=== PATIENT | male | born 1980 | race African-American/Black ===

== ENCOUNTER 2016-10-02 07:17 | Emergency (ER) | payer BC, OTHER ==
[~2016-10-02] VITALS: Ht 182.9 cm; Wt 149.7 kg
[~2016-10-02 07:17] MED LIST: BP MEDS; CEPH-264 PO; HYDR-2678 PO; METR500T PO; lisinopril; zyrtec
--- NOTE | 2016-10-02 07:19 | PHYS DOC ---
Past Medical History Past Medical History: No Pertinent History, Hypertension Past Surgical History: Other Additional Past Surgical Histo: ankle Alcohol Use: None Drug Use: None Adult General Chief Complaint Chief Complaint: ABSCESS HPI HPI Patient is a 36 year old -[place] male who presents with abscess to his left buttocks. He states he noticed it on Sunday and has been getting more painful since then. He denies any fevers chills nausea or vomiting. He denies any pain with bowel movements. He states he had the same problem several years ago and they drained it. He states his last tetanus shot was within the last 5 years. He denies any allergies medications and is currently not taking any medications. He does have a primary care physician. Review of Systems Review of Systems Constitutional: Denies fever or chills [] Eyes: Denies change in visual acuity, redness, or eye pain [] HENT: Denies nasal congestion or sore throat [] Respiratory: Denies cough or shortness of breath [] Cardiovascular: No additional information not addressed in HPI [] GI: Denies abdominal pain, nausea, vomiting, bloody stools or diarrhea [] : Denies dysuria or hematuria [] Musculoskeletal: Denies back pain or joint pain [] Integument: Denies rash, positive for lesion on left buttocks Neurologic: Denies headache, focal weakness or sensory changes [] Endocrine: Denies polyuria or polydipsia [] Current Medications Current Medications Current Medications Medications (Trade) Dose Ordered Sig/Anabel Start Time Stop Time Status Last Admin Dose Admin Lidocaine/Sodium Bicarbonate (Buffered Lidocaine 1%) 20 ml STK-MED ONCE 10/02/16 07:37 10/02/16 07:38 DC Allergies Allergies Allergies Coded Allergies Type Severity Reaction Last Updated Verified No Known Drug Allergies 01/19/15 No Physical Exam Physical Exam Constitutional: Well developed, well nourished, no acute distress, non-toxic appearance. [] HENT: Normocephalic, atraumatic, bilateral external ears normal, oropharynx moist, no oral exudates, nose normal. [] Eyes: PERRLA, EOMI, conjunctiva normal, no discharge. [] Neck: Normal range of motion, no tenderness, supple, no stridor. [] Cardiovascular:Heart rate regular rhythm, no murmur [] Lungs & Thorax: Bilateral breath sounds clear to auscultation [] Abdomen: Bowel sounds normal, soft, no tenderness, no masses, no pulsatile masses. [] Skin: Warm, dry, no erythema, induration approximately 3 x 5 cm on the left lower buttocks Back: No tenderness, no CVA tenderness. [] Extremities: No tenderness, no cyanosis, no clubbing, ROM intact, no edema. [] Neurologic: Alert and oriented X 3, normal motor function, normal sensory function, no focal deficits noted. [] Psychologic: Affect normal, judgement normal, mood normal. [] Current Patient Data Vital Signs Vital Signs Date Time Temp Pulse Resp B/P (MAP) Pulse Ox O2 Delivery O2 Flow Rate FiO2 10/02/16 07:25 98.7 92 20 95 Room Air 98.7 EKG EKG [] Radiology/Procedures Radiology/Procedures [] Impressions: Gluteal abscess Course & Med Decision Making Course & Med Decision Making Pertinent Labs and Imaging studies reviewed. (See chart for details) Patient doesn't have a fever his vitals stable. He doesn't have any pain with bowel movement and is abscesses at the lower left etiology gluteal region. I&D the abscess was performed and it was packed with iodoform cause. He's being discharged with clindamycin 300 mg every 6 hours for 10 days. He's follow-up with general surgery. I've given him a referral to Dr. Bedoya's group. He is return in 2 days for wound check. It was explained to him that he has to follow up with surgery as this is a large enough abscess that he will likely need surgery follow-up and intervention if needed. He is agreeable Plan B discharged in stable condition with return precautions. Dragon Disclaimer Dragon Disclaimer This electronic medical record was generated, in whole or in part, using a voice recognition dictation system. Incision and Drainage Indication: abscess Procedure: The patient was positioned appropriately. Local anesthesia was 5 mL of 1% lidocaine. An incision was then made over the apex of the lesion and bloody, purulent material was expressed. The drainage cavity was irrigated and packed with sterile gauze. The patients tetanus status updated as needed. The patient tolerated the procedure well. Complications: none. Departure Departure Impression: Primary Impression: Gluteal abscess Disposition: 01 HOME, SELF-CARE Referrals: NO PCP (PCP) KINGSLEY BEDOYA MD Patient Instructions: Abscess, Perineal Additional Instructions: Your abscess was opened and packed. Your abscess is much larger than initially thought. You will need to follow-up with a surgeon within the next week. You will need to return to the ER in 2 days. Return sooner if you develop fevers, worsening pain or discomfort, troubles with bowel movements or other concerns. You can take pain meds as instructed. These are narcotic pain medicine can impair your judgment and make you sleepy. Please don't drive while taking these medicines. You will need to take anabiotic for the next 10 days. Scripts Clindamycin Hcl (CLINDAMYCIN HCL) 300 Mg Capsule 300 MG PO QID for 10 Days, #40 CAP Prov: BASSAM GONZALEZ MD 10/02/16 Hydrocodone/Apap 5-325 (NORCO 5-325 TABLET) 1 Each Tablet 1-2 TAB PO Q6HRS Y for PAIN, #20 TAB Prov: BASSAM GONZALEZ MD 10/02/16 BASSAM GONZALEZ MD Oct 02, 2016 07:19
[2016-10-02 07:25] VITALS: BP 160/97
[2016-10-02] MEDS ORDERED: LIDOCAINE 1% / SOD BICARB 8.4% 20 ML VIAL. IJ ONE ×2 (07:30→07:37)
[2016-10-02] MEDS ORDERED: CLIN300C8 PO (08:50)
[2016-10-02] MEDS ORDERED: HYDR-971 PO (08:50)
[2016-10-02] MEDS ORDERED: CLINDAMYCIN HCL 150 MG CAPSULE. PO ONE (09:00)
== END 2016-10-02 09:16 | disposition home or self-care (01) ==
LOC: ER 07:17
DX: L02.31 Cutaneous abscess of buttock (principal); I10 Essential (primary) hypertension
CPT/HCPCS: 10060; 87071; 87075; 87205; 99284-25

== ENCOUNTER 2018-07-19 08:38 | Emergency (ER) | payer OTHER ==
[~2018-07-19] VITALS: Ht 182.9 cm; Wt 149.7 kg
[~2018-07-19 08:38] MED LIST changes: +CLIN300C8 PO; +HYDR-3164 PO
[2018-07-19 09:01] VITALS: BP 167/102
[2018-07-19] MEDS ORDERED: DIPHTH,PERTUSS(ACELL),TET TOX 0.5 ML DISP.SYRIN. VAX IM ONE (09:15)
[2018-07-19] MEDS ORDERED: MUPI22OI2 TP (09:16)
[2018-07-19] MEDS ORDERED: CEPH500T PO (09:16)
--- NOTE | 2018-07-19 09:17 | PHYS DOC ---
Past Medical History Past Medical History: No Pertinent History, Hypertension Past Surgical History: Other Additional Past Surgical Histo: ankle Alcohol Use: None Drug Use: None Adult General Chief Complaint Chief Complaint: ABSCESS HPI HPI Patient is a 37 year old male with history of hypertension, who presents to the ED today complaining of infection on his chin that began after shaving a couple days ago at the [employer]. Patient denies any fever. Review of Systems Review of Systems Constitutional: Denies fever or chills [] Musculoskeletal: Denies back pain or joint pain [] Integument: Chin infection from shaving Neurologic: Denies headache, focal weakness or sensory changes [] All other systems were reviewed and found to be within normal limits, except as documented in this note. Allergies Allergies Allergies Coded Allergies Type Severity Reaction Last Updated Verified No Known Drug Allergies 01/19/15 No Physical Exam Physical Exam Constitutional: Well developed, well nourished, no acute distress, non-toxic appearance. [] Skin: chin with mild erythematous rash with trace yellow drainage. No fluctuance are consistent with barbae folliculitis Back: No tenderness, no CVA tenderness. [] Extremities: No tenderness, no cyanosis, no clubbing, ROM intact, no edema. [] Neurologic: Alert and oriented X 3, normal motor function, normal sensory function, no focal deficits noted. [] Psychologic: Affect normal, judgement normal, mood normal. [] EKG EKG [] Radiology/Procedures Radiology/Procedures [] Course & Med Decision Making Course & Med Decision Making Pertinent Labs and Imaging studies reviewed. (See chart for details) This is a 37-year-old male patient presenting to the ED today with barbae folliculitis on the chin. Tetanus updated. Discharged with Bactroban ointment and cephalexin. Follow-up with PCP in 1-2 weeks. Instructed not to shave the area until the infection has cleared up completely. Blood pressures were in the 160s over low 100s, patient has history of HTN, did not take his medication, reminded to take his medicine when he gets home. Dragon Disclaimer Dragon Disclaimer This electronic medical record was generated, in whole or in part, using a voice recognition dictation system. Departure Departure Impression: Primary Impression: Folliculitis barbae Additional Impression: HTN (hypertension) Disposition: HOME, SELF-CARE Condition: STABLE Referrals: NO PCP (PCP) follow up with your doctor in 1-2 weeks Patient Instructions: Folliculitis, Hypertension Additional Instructions: You were evaluated in the emergency room for barbae folliculitis. Please do not shave the chin area until the infection has cleared up. Apply warm compresses to the area twice a day. You can wash the area with regular soap and water. Use the prescribed antibiotics as ordered, ensure you complete your oral antibiotics. Scripts Mupirocin (MUPIROCIN OINTMENT) 22 Gm Oint...g. 1 REINA TP TID for WOUND CARE, #1 TUBE Prov: NANI BETANCOURT APRN 07/19/18 Cephalexin (CEPHALEXIN) 500 Mg Tablet 1 TAB PO QID, #40 TAB Prov: NANI BETANCOURT APRN 07/19/18 Problem Qualifiers Additional Impression: HTN (hypertension) Hypertension type: unspecified Qualified Codes: I10 - Essential (primary) hypertension NANI BETANCOURT APRN Jul 19, 2018 09:17
== END 2018-07-19 09:35 | disposition home or self-care (01) ==
LOC: ER 08:38
DX: L73.1 Pseudofolliculitis barbae (principal); I10 Essential (primary) hypertension
CPT/HCPCS: 90471; 90715; 99283

== ENCOUNTER → 2020-05-14 | Outpatient (CLI) | payer OTHER ==
[~2020-05-14] MED LIST changes: +CEPH500T PO; -CLIN300C8 PO; +CLIN300C9 PO; +CYCL10TA2 PO; +HYDR-2765 PO; +IBUP-1060 PO; +LOSA100T14 PO; +MUPI22OI2 TP; +OMEP40CA45 PO; +OXYC1TAB22 PO
== END ==
LOC: LAB 10:18
PROVIDERS: ATTEND Orthopaedic Surgery
DX: Z01.812 Encounter for preprocedural laboratory examination (principal); S46.212A Strain of muscle, fascia and tendon of other parts of biceps, left arm, initial encounter; M19.212 Secondary osteoarthritis, left shoulder; M19.012 Primary osteoarthritis, left shoulder; M75.122 Complete rotator cuff tear or rupture of left shoulder, not specified as traumatic; X58.XXXA Exposure to other specified factors, initial encounter; Y92.89 Other specified places as the place of occurrence of the external cause; Y93.89 Activity, other specified; Y99.8 Other external cause status
CPT/HCPCS: U0003

== ENCOUNTER 2020-05-18 07:00 | Day surgery (SDC) | payer OTHER ==
[~2020-05-18] VITALS: Ht 182.9 cm; Wt 174.6 kg
[~2020-05-18 07:00] MED LIST changes: -CYCL10TA2 PO; -HYDR-2765 PO; -IBUP-1060 PO; -LOSA100T14 PO; -OMEP40CA45 PO; -OXYC1TAB22 PO; +ceFAZolin SODIUM 3 GM in IV DEXTROSE 5% 100ML 100 ML IV PRN
[2020-05-18] MEDS ORDERED: EPINEPHrine VIAL 30 MG/30 ML VIAL ONE (07:32)
[2020-05-18] MEDS ORDERED: HYDR-2765 PO (07:40)
[2020-05-18] MEDS ORDERED: OMEP40CA45 PO (07:40)
[2020-05-18] MEDS ORDERED: CYCL10TA2 PO (07:40)
[2020-05-18] MEDS ORDERED: LOSA100T14 PO (07:40)
[2020-05-18] MEDS ORDERED: IBUP-1060 PO (07:40)
[2020-05-18] MEDS ORDERED: MIDAZOLAM HCL/PF 2 MG/2 ML VIAL. ONE (07:58)
[2020-05-18] MEDS ORDERED: ROPIVacaine 0.5% PF 20 ML VIAL. ONE (07:58)
[2020-05-18] MEDS ORDERED: IV RINGERS,LACTATED 1000ML 1,000 ML IV SCH ×2 (08:00→10:30)
[2020-05-18] MEDS ORDERED: ONDANSETRON PF 4 MG/2 ML VIAL. ONE (08:07)
[2020-05-18] MEDS ORDERED: LIDOCAINE 2% PF 5 ML VIAL. ONE (08:07)
[2020-05-18] MEDS ORDERED: DEXAMETHASONE SOD PHOS 4 MG/ML VIAL ONE (08:07)
[2020-05-18] MEDS ORDERED: PHENYLEPHRINE in 0.9% NACL PF 1 MG/10 ML SYRINGE. IV ONE ×2 (08:07→09:33)
[2020-05-18] MEDS ORDERED: ePHEDrine PF IN SALINE 50 MG/10 ML SYRINGE. IV ONE (08:07)
[2020-05-18] MEDS ORDERED: PROPOFOL 10 MG/ML (20ML) VIAL. IV ONE ×2 (08:07→10:12)
[2020-05-18] MEDS ORDERED: SUCCINYLCHOLINE 200 MG/10 ML VIAL. ONE (08:08)
[2020-05-18] MEDS ORDERED: ROCURONIUM 50 MG/5 ML VIAL. ONE (08:08)
[2020-05-18] MEDS ORDERED: fentaNYL PF VIAL 100 MCG/2 ML VIAL ONE (08:09)
[2020-05-18] MEDS ORDERED: SEVOFLURANE > 120 MINUTES. IH ONE (08:59)
[2020-05-18] MEDS ORDERED: FAMOTIDINE 20 MG/2 ML VIAL ONE (09:00)
[2020-05-18] MEDS ORDERED: NEOSTIGMINE METHYLSULFATE 5 MG/5 ML SYRINGE. ONE (09:29)
[2020-05-18] MEDS ORDERED: HYDROmorphone 2 MG/ML VIAL IVP PRN (10:30)
[2020-05-18] MEDS ORDERED: PROCHLORPERAZINE 10 MG/2 ML VIAL. IVP PRN (10:30)
[2020-05-18] MEDS ORDERED: fentaNYL PF VIAL 100 MCG/2 ML VIAL IVP PRN ×2 (10:30)
[2020-05-18] MEDS ORDERED: oxyCODONE/APAP 10/325 1 TAB TABLET PO ONE (10:30)
[2020-05-18] MEDS ORDERED: OXYC1TAB22 PO (10:40)
--- NOTE | 2020-05-18 10:45 | DISCH ---
DISCHARGE INSTRUCTIONS Condition on Discharge Condition on Discharge: Stable Activity After Discharge Activity Instructions for Disc: Other, see below (No active lifting left arm away from body, passive motion and fine motor use only) Weight Bearing Status after Di: Non weight bearing Diet after Discharge Diet after Discharge: Regular Wound Incision Care Wound/Incision Care: Ice to area for comfort, Change dressing (remove dressing in 2 days may then shower) Community/Resources/Services Services at Discharge: PT EVALUATE & TREAT (passive motion to left shoulder only for 1 month) Contacting the after DC Call your doctor for: Concerns you may have Follow-Up Follow up with: Dr. Kirkland 1 week Treatment/Equipment after DC Adaptive Equipment Issued: None SANDRA KIRKLAND MD May 18, 2020 10:44
[2020-05-18 11:20] VITALS: BP 160/84
--- NOTE | 2020-05-18 14:11 | PDOC4 ---
Operative Note Operative Note Date of procedure: 05/18/2020 Preoperative diagnosis: Left shoulder supraspinatus tear concern for possible biceps tendon involvement subacromial impingement Postoperative diagnosis: Same with a full-thickness bursal sided supraspinatus tear anteriorly, intact superior labrum and biceps but significant anterior labral fraying Operative procedure: Left shoulder arthroscopy, arthroscopic rotator cuff repair, subacromial decompression, and extensive labral debridement Surgeon: Isael Epic Prelude Analyst: Chino Lo special education assistant Anesthesia: General plus interscalene block Estimated blood loss: 10 cc Complications: None Operative dictations: Please see previous clinic notes and preoperative history and physical for detailed operative indications but note that I did cover with him that we would fix what ever is wrong in the shoulder and expected to be fixing a rotator cuff tear addressing any biceps pathology as appropriate likely addressing any bone spur among other issues and we covered the possibility of nonhealing infection nerve or blood vessel damage medical or other anesthetic complications among others all his questions were answered he wishes to proceed with surgical evaluation and treatment Operative text: Patient was identified procedure verified patient placed in the supine position on operating table. After adequate amounts of general anesthesia plus a pre-existing scalene block were obtained he was placed decubitus left side up using the beanbag and all bony prominences were well- padded. Left shoulder was examined under anesthesia found to have full range of motion and no instability. The left shoulder was then prepped and draped in standard sterile fashion and placed in the arthroscopic arm renee with a total of 15 pounds of traction. After timeout was performed patient procedure identified and verified a standard posterior portal was established an anterior portal established using spinal needle localization and the shoulder joint was s ystematically examined.. The superior labrum had some slight fraying but the biceps anchor was overall intact after debridement back to stable tissue with the electrocautery. Likewise the anterior labrum was noted to have significant fraying but no detachment anteriorly and was debrided back to stable tissue. Capsuloligamentous structures were otherwise noted to be normal in appearance biceps was brought into the shoulder joint and noted to have no evidence of any compromise. Normal bare area of the humerus and intact glenohumeral joint surfaces with only mild chondromalacia. Infraspinatus and posterior supraspinatus appeared to have intact insertion from the joint side but some irregularity was noted anterior supraspinatus insertion and when examined from the bursal side with clearance of the bursa for adequate visualization he was noted to have a full-thickness tear at the anterior supraspinatus insertion site. Rotator cuff footprint was debrided to stable bleeding bony tissue without decortication and a double loaded Biomet juggernaut anchor was placed medial on the footprint and sutures were placed in simple fashion and anchored laterally with a Quatro link anchor 4.5 and an excellent watertight repair was noted in all degrees of internal/external rotation. Anterior acromial spur was removed with the arthroscopic bur and the acromioclavicular joint capsule was not compromised. Joint was drained of arthroscopic fluid and portals were closed with buried Vicryl suture subcuticular Monocryl Steri-Strips Mastisol sterile dressings were applied he was placed in the shoulder immobilizer and returned to recovery room in stable condition having tolerated procedure well. Chino stack assist was present for the procedure assisted in the patient positioning prepping draping assist with various devices closure and dressings SANDRA MARISCAL MD May 18, 2020 14:11
== END 2020-05-18 11:55 | disposition home or self-care (01) ==
LOC: SURG 07:00
PROVIDERS: ATTEND Orthopaedic Surgery
DX: M75.122 Complete rotator cuff tear or rupture of left shoulder, not specified as traumatic (principal); S46.212A Strain of muscle, fascia and tendon of other parts of biceps, left arm, initial encounter; M19.212 Secondary osteoarthritis, left shoulder; M19.012 Primary osteoarthritis, left shoulder; I10 Essential (primary) hypertension; E66.9 Obesity, unspecified; K21.9 Gastro-esophageal reflux disease without esophagitis; F17.210 Nicotine dependence, cigarettes, uncomplicated; Z79.899 Other long term (current) drug therapy; Z98.890 Other specified postprocedural states; Z82.49 Family history of ischemic heart disease and other diseases of the circulatory system; Z83.3 Family history of diabetes mellitus; Z88.8 Allergy status to other drugs, medicaments and biological substances; X58.XXXA Exposure to other specified factors, initial encounter; Y93.89 Activity, other specified; Y92.89 Other specified places as the place of occurrence of the external cause; Y99.8 Other external cause status
CPT/HCPCS: 29827; 64450; C1713; J0171; J0330; J1100; J2250; J2370; J2405; J2704; J2710; J2795; J3010; J3490; J7120